=== PATIENT | male | born 1975 | race Caucasian/White ===

== ENCOUNTER 2017-11-21 11:56 | Day surgery (SDC) | payer MEDICAID ==
[2017-11-21] MEDS ORDERED: Lactated Ringers 1,000 ML IV SCH (12:00)
[2017-11-21] MEDS ORDERED: Sodium Chloride 0.9% 5 ML Syringe FLUSH PRN (12:00)
[2017-11-21] MEDS ORDERED: Propofol 200 MG/20 ML SDV ONE ×3 (12:49→13:10)
[2017-11-21] MEDS ORDERED: Midazolam 1 MG/ML 2 ML SDV ONE ×2 (12:49→13:03)
[2017-11-21] MEDS ORDERED: Propofol 200 MG/20 ML SDV IV ONE (13:50)
[2017-11-21] MEDS ORDERED: Midazolam 1 MG/ML 2 ML SDV IV ONE (13:50)
--- NOTE | 2017-11-21 13:58 | PCM.PN ---
- General Info Date of Service: 11/21/17 - Review of Systems Systems Review Comment:: 42-year-old male referred for colonoscopy. He has recently noticed a change in stool caliber and occasional hematochezia. He denies family history of colon cancer. He is medically stable to proceed today. His recent history and physical is reviewed and no significant changes are noted. I discussed the proposed colonoscopy with the patient. Risks such as but not limited to bleeding and GI injury reviewed. He appears to understand and agrees to proceed. - Patient Data Vitals - Most Recent: Last Vital Signs Temp 98 F 11/21/17 12:00 Pulse 85 11/21/17 12:00 Resp 16 11/21/17 12:00 BP 154/105 H 11/21/17 12:00 Pulse Ox 97 11/21/17 12:00 Weight - Most Recent: 142.882 kg Med Orders - Current: Current Medications Lactated Ringer's (Ringers, Lactated) 1,000 mls @ 50 mls/hr IV ASDIRECTED DAVID Sodium Chloride (Syrex Flush) 5 ml FLUSH Q8HR PRN PRN Reason: Keep Vein Open Discontinued Medications Midazolam HCl (Versed 1 Mg/Ml) Confirm Administered Dose 2 mg .ROUTE .STK-MED ONE Stop: 11/21/17 12:50 Propofol (Diprivan 20 Ml) Confirm Administered Dose 200 mg .ROUTE .STK-MED ONE Stop: 11/21/17 12:50 - Problem List Review Problem List Initiated/Reviewed/Updated: Yes - My Orders Last 24 Hours: My Active Orders 11/20/17 14:46 Resuscitation Status Routine 11/21/17 12:00 Peripheral IV Care [RC] . DIRECTED Vital Signs [RC] PER UNIT ROUTINE Lactated Ringers [Ringers, Lactated] 1,000 ml IV ASDIRECTED Sodium Chloride 0.9% [Syrex Flush] 5 ml FLUSH Q8HR PRN Peripheral IV Insertion Adult [OM.PC] Routine 11/21/17 12:30 Patient to Empty Bladder [RC] ASDIRECTED 11/21/17 12:55 Verify Patient Consent Obtain [RC] ASDIRECTED 11/21/17 Breakfast Nothing Per Oral Diet [DIET] - Assessment Assessment:: Change in stool caliber Hematochezia - Plan Plan:: Colonoscopy
--- NOTE | 2017-11-21 14:32 | PCM.OPNOTE ---
- General Post-Op/Procedure Note Date of Surgery/Procedure: 11/21/17 Operative Procedure(s): Colonoscopy with Polypectomy Findings: Moderate Sigmoid Diverticulosis Multiple colon polyps Pre Op Diagnosis: Change in stool caliber. Hematochezia Post-Op Diagnosis: Colon Polyps. Diverticulosis Anesthesia Technique: MAC Primary Surgeon: Misael Hardy Pathology: Colon Polyps Output, Urine Amount: 0 EBL in mLs: 0 Complications: None Condition: Good
--- NOTE | 2017-11-22 01:09 | OR ---
DATE OF SURGERY: 11/21/2017 SURGEON: Misael Hardy MD PREOPERATIVE DIAGNOSIS: Change in bowel pattern and hematochezia. POSTOPERATIVE DIAGNOSIS: Diverticulosis and colon polyps. OPERATION PERFORMED: Colonoscopy with polypectomy. INDICATIONS FOR SURGERY: This 42-year-old male has recently noted change in bowel pattern with a decreased stool caliber. He has also had some recent episodes of hematochezia. FINDINGS: Two polyps are noted on today's exam. A 1 cm sessile polyp in the sigmoid colon 30 cm from the anal verge and a 12 mm pedunculated polyp in the proximal transverse colon. The patient has a moderate to extensive degree of sigmoid diverticulosis. There is some spasm in the folds through this area, but no visible evidence of acute inflammation. DESCRIPTION OF PROCEDURE: The patient was taken to the operating room. He was given intravenous sedation and with him in the left lateral decubitus position, digital rectal exam was performed showing no rectal masses. The Olympus colonoscope was inserted into the rectum. Retroflexed examination of the rectal canal was performed. The scope was then carefully advanced under direct visualization into the sigmoid colon region where the above-described polyp was identified. This was removed with a cautery snare and retrieved. The scope was then further advanced to the proximal transverse colon where the other above- described polyp was identified. This was removed with a cautery snare and retrieved into a polyp trap. The scope was then advanced to the cecum where the ileocecal valve and appendiceal orifice were identified. The ileocecal valve was cannulated and the terminal ileum examined and this area also appeared normal. The scope was then slowly withdrawn sequentially re-examining the colonic segments until the entire colon and rectum had been fully examined. The scope was then removed, and the patient was taken from the operating room in satisfactory condition. ESTIMATED BLOOD LOSS: Zero. COMPLICATIONS: None. PROGNOSIS: Good. /[id number]/MODL
== END 2017-11-21 15:57 | disposition home or self-care (01) ==
LOC: KA.SDS 11:56
PROVIDERS: ATTEND Surgery
DX: K92.1 Melena (principal); R19.8 Other specified symptoms and signs involving the digestive system and abdomen; D17.79 Benign lipomatous neoplasm of other sites; D12.3 Benign neoplasm of transverse colon; K57.30 Diverticulosis of large intestine without perforation or abscess without bleeding; I10 Essential (primary) hypertension; Z79.899 Other long term (current) drug therapy; F17.210 Nicotine dependence, cigarettes, uncomplicated; E66.9 Obesity, unspecified; Z68.41 Body mass index [BMI] 40.0-44.9, adult; F41.9 Anxiety disorder, unspecified; Z88.8 Allergy status to other drugs, medicaments and biological substances; Z88.2 Allergy status to sulfonamides
CPT/HCPCS: J2250; J2704; J7120

== ENCOUNTER 2019-06-04 17:18 | Emergency (ER) | payer MEDICAID ==
[2019-06-04] MEDS ORDERED: Ondansetron 4 MG/2 ML SDV IVPUSH ONE (17:39)
[2019-06-04] MEDS ORDERED: Sodium Chloride 0.9% 1,000 ML IV ONE (17:39)
[2019-06-04] MEDS ORDERED: Ketorolac 30 MG/ML SDV IVPUSH ONE (17:39)
[2019-06-04] MEDS ORDERED: HYDROmorphone 1 MG/ML Syringe IVPUSH ONE (17:39)
--- NOTE | 2019-06-04 17:49 | EDM.PDOC ---
ED HPI GENERAL MEDICAL PROBLEM - General Chief Complaint: Abdominal Pain Stated Complaint: ABDOMINAL PAIN Time Seen by Provider: 06/04/19 17:38 Source of Information: Reports: Patient History Limitations: Reports: No Limitations - History of Present Illness INITIAL COMMENTS - FREE TEXT/NARRATIVE: Patient is a 43-year-old gentleman who presents to the emergency department via private vehicle and has a complaint of abdominal pain. Patient states pain began at 2 a.m. on June 03. Symptoms seemed to resolve during the day after taking [id number] medicine. Pain started again this morning and progressively worsened. Patient describes pain as fullness and aching, generalized, but worse in right upper quadrant. Patient had one episode today of nausea and vomiting today. Patient had small formed bowel movement yesterday. Patient denies blood in stool, testicular pain, dysuria, chest pain , shortness of breath, fever, family members with similar symptoms, or out of country travel. Onset: Gradual Onset Date: 06/03/19 Onset Time: 02:00 Duration: Day(s): Location: Reports: Abdomen Quality: Reports: Ache, Pressure Severity: Severe Improves with: Reports: None Worsens with: Reports: None Associated Symptoms: Reports: Nausea/Vomiting. Denies: Chest Pain, Fever/Chills , Shortness of Breath Abdomen Pain Score (Numeric/FACES): 10 - Related Data Allergies Allergy/AdvReac Type Severity Reaction Status Date / Time lisinopril Allergy Cannot Verified 06/04/19 18:19 Remember Sulfa (Sulfonamide Allergy Cannot Verified 06/04/19 18:19 Antibiotics) Remember Home Meds: Home Meds Losartan Potassium 50 mg PO BID 11/20/17 [History] Metoprolol Tartrate 25 mg PO BID 11/20/17 [History] Past Medical History Cardiovascular History: Reports: Pulmonary Hypertension Respiratory History: Reports: None Gastrointestinal History: Reports: None Genitourinary History: Reports: None Musculoskeletal History: Reports: Fracture Neurological History: Reports: Migraines Psychiatric History: Reports: None Endocrine/Metabolic History: Reports: Obesity/BMI 30+ Dermatologic History: Reports: None - Infectious Disease History Infectious Disease History: Reports: Chicken Pox - Past Surgical History Cardiovascular Surgical History: Reports: None Respiratory Surgical History: Reports: None GI Surgical History: Reports: None Male Surgical History: Reports: None Endocrine Surgical History: Reports: None Neurological Surgical History: Reports: None Musculoskeletal Surgical History: Reports: None Dermatological Surgical History: Reports: None Social & Family History - Family History Cardiac: Reports: High Cholesterol, Hypertension Respiratory: Reports: Asthma Psychiatric: Reports: None Endocrine/Metabolic: Reports: Diabetes, type II Other Endocrine/Metabolic Family History: Father Oncologic: Reports: Breast, Leukemia Other Oncologic Family History: Leukemia- father. Breast cancer- grandmother - Caffeine Use Caffeine Use: Reports: Soda, Tea ED ROS GENERAL - Review of Systems Review Of Systems: Comprehensive ROS is negative, except as noted in HPI. Constitutional: Reports: No Symptoms HEENT: Reports: No Symptoms Respiratory: Reports: No Symptoms Cardiovascular: Reports: No Symptoms Endocrine: Reports: No Symptoms GI/Abdominal: Reports: Abdominal Pain, Constipation, Nausea, Vomiting. Denies: Hematochezia, Melena, Mucous in Stool : Reports: No Symptoms Musculoskeletal: Reports: No Symptoms Skin: Reports: No Symptoms Neurological: Reports: No Symptoms Psychiatric: Reports: No Symptoms Hematologic/Lymphatic: Reports: No Symptoms Immunologic: Reports: No Symptoms ED EXAM, GI/ABD - Physical Exam Exam: See Below Exam Limited By: No Limitations General Appearance: Alert, WD/WN, Moderate Distress Nose: Normal Inspection, Normal Mucosa, No Blood Throat/Mouth: Normal Inspection, Normal Oropharynx, No Airway Compromise Head: Atraumatic, Normocephalic Neck: Normal Inspection, Supple, Non-Tender Respiratory/Chest: No Respiratory Distress, Lungs Clear, Normal Breath Sounds, No Accessory Muscle Use, Chest Non-Tender Cardiovascular: Regular Rate, Rhythm, No Murmur GI/Abdominal Exam: Normal Bowel Sounds, Soft, No Organomegaly, No Distention, No Abnormal Bruit, No Mass, Tender (Right upper quadrant). No: Non-Tender, Distended, Rebound, Mass, Hepatomegaly, Splenomegaly (Male) Exam: No Hernia, Normal Inspection Back Exam: Normal Inspection. No: CVA Tenderness (L), CVA Tenderness (R) Extremities: Normal Inspection Neurological: Alert, Oriented, Normal Cognition Psychiatric: Normal Affect, Normal Mood Skin Exam: Warm, Dry, Intact, Normal Color, No Rash Lymphatic: No Adenopathy Course - Vital Signs Last Recorded V/S: Last Vital Signs Temp 98.2 F 06/04/19 17:34 Pulse 74 06/04/19 17:34 Resp 20 06/04/19 17:34 BP 185/101 H 06/04/19 17:34 Pulse Ox 93 L 06/04/19 17:34 - Orders/Labs/Meds Orders: Active Orders 24 hr Category Date Time Status Peripheral IV Care [RC] . DIRECTED Care 06/04/19 17:39 Ordered UA RFX JONH AND CULT IF INDIC [URIN] Stat Lab 06/04/19 17:27 Ordered Sodium Chloride 0.9% [Saline Flush] Med 06/04/19 17:39 Ordered 10 ml FLUSH Q8HR PRN Peripheral IV Insertion Adult [OM.PC] Routine Oth 06/04/19 17:39 Ordered Medication Orders Sodium Chloride (Saline Flush) 10 ml FLUSH Q8HR PRN PRN Reason: keep vein open Last Admin: 06/04/19 18:16 Dose: 10 ml Admin: 06/04/19 18:15 Dose: 10 ml Admin: 06/04/19 18:12 Dose: 10 ml Labs: Laboratory Tests 06/04/19 06/04/19 06/04/19 Range/Units 17:30 17:30 17:30 WBC 21.43 H D (5.00-10.00) 10^3/uL RBC 5.46 (4.50-6.00) 10^6/uL Hgb 17.0 (13.0-17.0) g/dL Hct 49.6 (40.0-52.0) % MCV 90.8 D (82.0-92.0) fL MCH 31.1 H (27.0-31.0) pg MCHC 34.3 (32.0-36.0) g/dL RDW 12.9 (11.5-14.5) % Plt Count 247 (150-400) 10^3/uL MPV 10.3 (7.4-10.4) fL Immature Gran % (Auto) 0.4 (0.0-5.0) % Neut % (Auto) 84.6 H (50.0-70.0) % Lymph % (Auto) 8.7 L (20.0-40.0) % [place] % (Auto) 6.0 (2.0-8.0) % Eos % (Auto) 0.1 L (1.0-3.0) % Baso % (Auto) 0.2 (0.0-1.0) % Immature Gran # (Auto) 0.09 (0.00-0.50) 10^3/uL Neut # (Auto) 18.14 H (2.50-7.00) 10^3/uL Lymph # (Auto) 1.86 (1.00-4.00) 10^3/uL [place] # (Auto) 1.28 H (0.10-0.80) 10^3/uL Eos # (Auto) 0.02 L (0.10-0.30) 10^3/uL Baso # (Auto) 0.04 (0.00-0.10) 10^3/uL Sodium 132 L (136-145) mmol/L Potassium 3.8 (3.3-5.3) mmol/L Chloride 92 L (98-115) mmol/L Carbon Dioxide 28.6 (21.0-32.0) mmol/L Anion Gap 15.2 H (5-15) mmol/L BUN 12 (6-25) mg/dL Creatinine 0.93 (0.51-1.17) mg/dL Est Cr Clr Drug Dosing 106.83 mL/min Estimated GFR (MDRD) > 60 mL/min Glucose 163 H (75 - 99) mg/dL Lactic Acid 1.6 (0.4-2.0) mmol/L Calcium 9.6 (8.7-10.3) mg/dL Total Bilirubin 4.3 H (0.2-1.0) mg/dL AST 55 H (15-37) U/L ALT 60 (12-78) U/L Alkaline Phosphatase 146 H (46-116) IU/L Total Protein 8.5 H (6.4-8.2) g/dL Albumin 3.39 (3.00-4.80) g/dL Lipase 113 (73-393) U/L Meds: Medications Generic Name Dose Route Start Last Admin Trade Name Freq PRN Reason Stop Dose Admin Sodium Chloride 10 ml 06/04/19 17:39 06/04/19 18:16 Saline Flush FLUSH 10 ml Q8HR PRN Administration keep vein open Discontinued Medications Generic Name Dose Route Start Last Admin Trade Name Freq PRN Reason Stop Dose Admin Hydromorphone HCl 1 mg 06/04/19 17:39 06/04/19 17:55 Dilaudid IVPUSH 06/04/19 17:40 1 mg ONETIME ONE Administration Sodium Chloride 1,000 mls @ 999 mls/hr 06/04/19 17:39 06/04/19 18:10 Normal Saline IV 06/04/19 18:39 999 mls/hr .BOLUS ONE Administration Ketorolac Tromethamine 30 mg 06/04/19 17:39 06/04/19 17:50 Toradol IVPUSH 06/04/19 17:40 30 mg ONETIME ONE Administration Ondansetron HCl 4 mg 06/04/19 17:39 06/04/19 17:50 Zofran IVPUSH 06/04/19 17:40 4 mg ONETIME ONE Administration - Radiology Interpretation Free Text/Narrative:: CT abdomen and pelvis without contrast shows multiple layering stones within the gallbladder, fat stranding, consistent with acute cholecystitis - Re-Assessments/Exams Free Text/Narrative Re-Assessment/Exam: 06/04/19 19:03 Patient afebrile, vital signs stable, pain controlled. Scuffs case with Dr. Calvo, Gen. surgery at [facility]. He will accept patient for transfer and advanced level of care. Departure - Departure Time of Disposition: 19:05 Disposition: DC/Tfer to Acute Hospital 02 Condition: Fair Clinical Impression: Cholecystitis, Cholelithiasis and acute cholecystitis without obstruction Leukocytosis Qualifiers: Leukocytosis type: unspecified Qualified Code(s): D72.829 - Elevated white blood cell count, unspecified - Discharge Information Referrals: Eva Alvarez MD [Primary Care Provider] - Forms: ED Department Discharge Sepsis Event Note - Evaluation Sepsis Screening Result: No Definite Risk - Focused Exam Vital Signs: Vital Signs Temp Pulse Resp BP Pulse Ox 06/04/19 17:34 98.2 F 74 20 185/101 H 93 L Date Exam was Performed: 06/04/19 Time Exam was Performed: 19:03 - My Orders Last 24 Hours: My Active Orders 06/04/19 17:27 UA RFX JONH AND CULT IF INDIC [URIN] Stat 06/04/19 17:39 Peripheral IV Care [RC] . DIRECTED Sodium Chloride 0.9% [Saline Flush] 10 ml FLUSH Q8HR PRN Peripheral IV Insertion Adult [OM.PC] Routine - Assessment/Plan Last 24 Hours: My Active Orders 06/04/19 17:27 UA RFX JONH AND CULT IF INDIC [URIN] Stat 06/04/19 17:39 Peripheral IV Care [RC] . DIRECTED Sodium Chloride 0.9% [Saline Flush] 10 ml FLUSH Q8HR PRN Peripheral IV Insertion Adult [OM.PC] Routine Assessment:: Acute cholecystitis Plan: Transfer to [facility]
[2019-06-04] MEDS: Sodium Chloride 0.9% 10 ML Syringe FLUSH PRN ×3 (18:12→18:16)
--- NOTE | 2019-06-04 18:28 | CT ---
[id number] CT/CT Abdomen Pelvis WO IV EXAM: CT Abdomen Pelvis WO IV CLINICAL DATA: ABDOMINAL PAIN. COMPARISON STUDY: None. FINDINGS: Lung bases are clear. Multiple layering stones within the gallbladder. The gallbladder is distended. There is pericholecystic fat stranding. Trace free fluid within the pelvis. Liver, spleen, pancreas, adrenal glands, and kidneys are unremarkable. No bowel obstruction or inflammation. Colonic diverticulosis without evidence of acute diverticulitis. The appendix is visualized and appears normal. No lymphadenopathy, free fluid, or pneumoperitoneum. There are a few foci of air within the urinary bladder. This is nonspecific and may be related to recent instrumentation/catheterization. Small fat-containing umbilical hernia. Scattered changes of spondylosis the spine. No fracture or osseous lesion. IMPRESSION: 1. The gallbladder is distended with multiple layering stones as well as pericholecystic fat stranding. These findings are consistent with acute uncomplicated cholecystitis. David Hanson DO 06/04/19 1826 Thank you for allowing us to participate in the care of your patient.
[2019-06-04 18:38] LABS: ANION GAP 15.2 mmol/L (5-15); CHLORIDE,CL 92 mmol/L (98-115); SODIUM,NA 132 mmol/L (136-145)
[2019-06-04] MEDS ORDERED: Sodium Chloride 0.9% 1,000 ML IV SCH (19:15)
== END 2019-06-04 21:35 ==
LOC: KA.ED 17:18
DX: K80.00 Calculus of gallbladder with acute cholecystitis without obstruction (principal); D72.829 Elevated white blood cell count, unspecified; E66.9 Obesity, unspecified; Z88.2 Allergy status to sulfonamides; Z88.8 Allergy status to other drugs, medicaments and biological substances; Z79.899 Other long term (current) drug therapy
CPT/HCPCS: 36415; 74176; 80053; 81001; 83605; 83690; 85025; 87086; 96361; 96374; 96375; 99285-25; J1170; J1885; J2405; J7030

== ENCOUNTER 2022-06-14 12:08 | Day surgery (SDC) | payer MEDICAID ==
[~2022-06-14 12:08] MED LIST: Lactated Ringers 1,000 ML IV SCH; Sodium Chloride 0.9% 10 ML Syringe FLUSH PRN
[2022-06-14] MEDS ORDERED: Midazolam 1 MG/ML 2 ML SDV ONE (13:00)
[2022-06-14] MEDS ORDERED: Propofol 200 MG/20 ML SDV ONE (13:00)
[2022-06-14 14:01] VITALS: PULSE 83
[2022-06-14 14:31] VITALS: BP 111/69
== END 2022-06-14 14:40 | disposition home or self-care (01) ==
LOC: KA.SDS 12:08
PROVIDERS: ATTEND Surgery
DX: Z12.11 Encounter for screening for malignant neoplasm of colon (principal); D12.3 Benign neoplasm of transverse colon; K57.30 Diverticulosis of large intestine without perforation or abscess without bleeding; K21.9 Gastro-esophageal reflux disease without esophagitis; I10 Essential (primary) hypertension; R73.01 Impaired fasting glucose; Z86.010 Personal history of colon polyps; Z88.2 Allergy status to sulfonamides; Z88.8 Allergy status to other drugs, medicaments and biological substances; Z79.899 Other long term (current) drug therapy; Z98.890 Other specified postprocedural states
CPT/HCPCS: 00812; J2250; J2704; J3490; J7120

== ENCOUNTER 2025-05-14 12:46 | Emergency (ER) | payer MEDICAID ==
[2025-05-14] MEDS ORDERED: Sodium Chloride 0.9% 10 ML Syringe FLUSH PRN (14:20)
[2025-05-14 14:26] LABS: APPEARANCE,URINE TURBID (CLEAR); GLUCOSE,URINE 100 mg/dL (NEGATIVE); OCCULT BLOOD,URINE MODERATE (NEGATIVE)
[2025-05-14 14:39] LABS: BASOPHILS ABSOLUTE AUTO 0.04 10^3/uL (0.00-0.10); BASOPHILS PERCENT AUTO 0.4 % (0.0-1.0); EOSINOPHILS ABSOLUTE AUTO 0.38 10^3/uL (0.10-0.30); EOSINOPHILS PERCENT AUTO 3.3 % (1.0-3.0); IMMATURE GRAN ABSOLUTE AUTO 0.04 10^3/uL (0.00-0.04); IMMATURE GRAN PERCENT AUTO 0.4 % (0.0-0.4); LYMPHOCYTES ABSOLUTE AUTO 1.67 10^3/uL (1.00-4.00); LYMPHOCYTES PERCENT AUTO 14.7 % (20.0-40.0); MEAN PLATELET VOLUME 9.8 fL (7.4-10.4); MONOCYTES ABSOLUTE AUTO 0.99 10^3/uL (0.10-0.80); MONOCYTES PERCENT AUTO 8.7 % (2.0-8.0); NEUTROPHILS ABSOLUTE AUTO 8.23 10^3/uL (2.50-7.00); NEUTROPHILS PERCENT AUTO 72.5 % (50.0-70.0); PLATELET COUNT,PLT 170 10^3/uL (150-400); RED BLOOD CELL COUNT 4.68 10^6/uL (4.50-6.00); RED CELL DISTRIBUTION WIDTH 12.9 % (11.5-14.5); WHITE BLOOD CELL COUNT,WBC 11.35 10^3/uL (5.00-10.00)
[2025-05-14 15:05] LABS: ALANINE AMINOTRANSFERASE,ALT 49.0 U/L (14-63); ASPARTATE AMNIOTRANSFERASE,AST 39.0 U/L (15-37); BILIRUBIN TOTAL 1.0 mg/dL (0.2-1.0); BLOOD UREA NITROGEN,BUN 14.0 mg/dL (7-18); CARBON DIOXIDE,CO2 27.2 mmol/L (21.0-32.0); CHLORIDE,CL 98.0 mmol/L (98-107); CREATININE 0.77 mg/dL (0.51-1.17); EST CRCL DRUG DOSING (CG) 120.88 mL/min; GLUCOSE RANDOM 124.0 mg/dL (70-140); POTASSIUM,K 3.7 mmol/L (3.5-5.1); PROTEIN TOTAL,TP 8.9 g/dL (6.4-8.2); SODIUM,NA 137.0 mmol/L (136-145)
[2025-05-14 15:06] LABS: ESTIMATED GFR 108.0 mL/min (>=60)
[2025-05-14 15:41] VITALS: BP 141/91; PULSE 80
[2025-05-16] MEDS ORDERED: Diatrizoate Meglumine/Diatrizoate Sodium 37% 30 ML Bottle PO ONE (08:31)
== END 2025-05-14 15:38 | disposition home or self-care (01) ==
LOC: KA.ED 12:46
DX: N32.1 Vesicointestinal fistula (principal); D72.829 Elevated white blood cell count, unspecified; I10 Essential (primary) hypertension; Z88.8 Allergy status to other drugs, medicaments and biological substances; Z88.2 Allergy status to sulfonamides; Z79.899 Other long term (current) drug therapy; Z71.89 Other specified counseling
CPT/HCPCS: 36415; 74177; 80053; 81001; 83605; 85025; 99284